=== PATIENT | male | born 2005 | race African-American/Black ===

== ENCOUNTER 2024-10-26 23:32 | Emergency (ER) | payer SELFPAY ==
[~2024-10-26] VITALS: Ht 177.8 cm; Wt 69.0 kg
[2024-10-26 23:35] VITALS: O2SAT 98
[2024-10-27] MEDS: HYDROXYZINE 25MG TABLET PO NR (00:58)
[2024-10-27] MEDS: HYDROXYZINE 25MG TABLET PO ONE (01:01)
[2024-10-27 01:59] VITALS: BP 108/56; PULSE 63; RESP 15; TEMP 36.9; O2SAT 98
== END 2024-10-27 02:04 | disposition home or self-care (01) ==
LOC: ER 23:42
DX: R07.2 Precordial pain (principal)
CPT/HCPCS: 71045; 93005; 99283